=== PATIENT | female | born 1975 | race Caucasian/White ===

== ENCOUNTER 2023-09-11 13:01 | Outpatient (RCR) | payer OTHER, SELFPAY ==
--- NOTE | 2023-10-09 17:22 | MHC.SP.ADU ---
Referring provider: Tressa Mccoy MD Reason for Referral: hoarseness Type of Treatment: 959[address] Behavioral and Qualitative Analysis of Voice and Resonance Date of Plan of Treatment: 09/11/23 Onset of Symptoms/Illness: 08/22/22 Date Treatment Started: 09/11/23 Medical Diagnosis: hoarseness, GERD Primary Speech Language Diagnosis: R49.0 Dysphonia History Eileen is a 47 year old female referred for speech therapy by Tressa Mccoy MD, with [facility] with diagnoses of hoarseness and GERD. Eileen was seen by the ENT in May 2023. The ENT referral notes a normal oropharynx, no neck adenopathy, no true cord lesions as well as ?some cobblestoning and some squeeze with phonation and some mild erythema.? Per ENT report, the ENT suspects the presence of muscle tension dysphonia throat clearing heavier as contributing to soreness and hoarseness. Eileen?s ENT visit in May prompted a referral to [facility] for voice therapy for hoarseness. Eileen provided additional background information at this Speech-Language Pathologist evaluation at [facility]. 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 Eileen reports that in August 2022 she was admitted to the hospital for severe abdominal pain where she was put on ?acid meds to control stomach.? In September 2022, she was experiencing a loss of voice and throat pain that felt like strep that worsened with exercise. In December 2022, she began seeing a GI doctor, where she was diagnosed with reflex. She reports that she was initially put on Pantoprazole which ?didn?t seem to help.? She reports that she feels that her GI appointments have been helpful in evaluation and monitoring of symptoms and believes that this is the appropriate path for her treatment. In addition to voice concerns, Eileen reports difficulty with swallowing; reporting that when her throat hurts, it hurts to swallow in general. Medical History: Acid Reflux Chronic Laryngitis Medication List: Mounjaro Recent Hospitalizations: No Respiratory Needs: Room Air Patient Orientation: Alert & Oriented x 4 Social History: Employment Status: Apartment Community Manager Employed Highest level of education obtained: Completed Master's Current Living Situation: Lives w/ others in private residence Assistive Devices in use: Glasses/Contacts Past Speech Language Therapy: None reported Other Therapies Seen in Current Calendar Year: Other (See Comment) Other: None reported Swallowing History: Dysphagia Specific: Other Comments: Eileen reports that swallowing generally hurts when her throat hurts. Recommend further discussion regarding swallowing to explore any further s/s of dysphagia. Pre-eval Risk for Aspiration: None Pre-evaluation Dietary Consistencies: Regular Pre-eval Liquid Intake: Thin Reported Speech, Language, Cognition difficulties: Voice Swallowing Assessment Informal Voice Assessment: Voice Loudness: Normal Voice Phonatory-based Quality: Normal, Hoarse Voice Pitch: Normal Voice Other Observations: Clinical Impression: Clinicial Observations: RESULTS: Eileen?s vocal quality as well as her perception of her voice was analyzed during today?s evaluation through measures including patient interview, questionnaires, conversation samples, and vocal exercises. Eileen reports that on the day of this visit that her voice feels minimally quiet and weak with a moderately sore throat. She self-reports a vocal rating of 85% out of 100. She reports that she worked out the past 3 days which has negatively impacted her voice. She presents with a mildly hoarse to normal voice throughout the evaluation. Eileen did not present with any throat clearing behavior during today?s visit. Patient History & Vocal Hygiene Interview In an interview largely regarding vocal hygiene, Eileen reported the following: -At least 8 glasses of water per day -No caffeine or chocolate -Minimal alcohol use -No smoking -6 hours of sleep per night -Frequent loud talking, talking in noisy environments, and talking for long periods of time; largely due to her profession as a teacher -Occasional throat clearing -Rare episodes of yelling and coughing -Vocal quality worse in the morning and after exercise -Vocal rest improves vocal quality -Has reflux symptoms, but not currently taking heartburn/reflux medication Voice Handicap Index (VHI) The VHI is a questionnaire in which an individual answers questions regarding functional, emotional, and physical components of their voice to provide insight into their perception of their own voice. Functional questions provide insight into the impact of their voice on daily activities; i.e. ?I speak with friends, neighbors, or relatives less often because of my voice.? Emotional questions provide insight into the individual?s feelings regarding their voice; i.e. ?My voice problem upsets me.? Physical questions provide insight into the individual?s physical discomfort and characteristics of voice; i.e. ?I use a great deal of effort to speak.? Responses to questions include never, almost never, sometimes, almost always, and always. Eileen?s score was computed to be 25 out of a total possible score of 120. A score of 0-30 is interpreted as a ?minimal amount of handicap? meaning that her perception of her voice has minimal impact on aspects of daily life. Her physical symptoms score was the highest at 14 out of a possible 40, followed by functional followed by emotional; suggesting that her voice has the greatest physical impact in Eileen?s daily life.? Voice-Related Quality of Life (V-RQOL) Measure The V-RQOL is a questionnaire completed by an individual to analyze their outlook on their voice problem as it relates to their daily activities and overall quality of life. There are ten statements to which an individual subscribes a score to each from 1 to 5 (1=not a problem, 5=?as bad as it can be?) to describe how much of a problem that particular statement has been within the past two weeks. Eileen assigned ratings 1, 2, and 3 to each statement. She responded 3 (moderate) to ?I am sometimes anxious or frustrated because of my voice? and ?I have trouble doing my job or practicing my profession because of my voice.? Eileen scored 19 on the questionnaire, which is considered ?excellent? and indicates minimal negative effect on one?s quality of life. It is worth noting that a score of 20-29 would indicate ?fair to good? in regards to the effect on one?s quality of life. S:Z Ratio The S:Z Ratio is not diagnostic of laryngeal pathology: it is merely a measurement of one?s ability to sustain the voiceless sound [S] in comparison to sustaining the voiced sound [Z] cognate. For the majority of people with no difficulties affecting their vocal folds are typically able to sustain both the voiceless [S] and voiced [Z] sounds for approximately the same length of time during the S:Z task, thus producing a 1:1 ratio. 95% of people who have some difficulty affecting the movement or vibration of their vocal folds have an S:Z ratio of greater than 1.40. Conversely, a S:Z ratio of less than 1.0 suggests functional dysphonia in the absence of laryngeal pathology ([place] & Howie, 1981).? Across three trials, Eileen produced the following on the S:Z prolongation averages: S = 13.5 seconds Z = 17.5 seconds Ratio: 0.77 Norms: Mean S= 17.7 seconds (Standard deviation = 7.6 seconds); Mean Z=18.6 seconds (Standard deviation = 7.0 seconds) ([place] & Howie 1981 in John et. al. 1987) Eileen?s S:Z ratio of less than 1.0 would indicate functional dysphonia in the absence of laryngeal pathology. The length of her [S] and [Z] sound prolongations are deemed to be within 1 standard deviation based on the normative data provided above. Maximum Phonation Time (MPT) [a] prolongation: range: 12.96-16.66 seconds, mean = 14.42 seconds When prompted to produce a prolonged ?AHH? ([a] prolongation), Eileen presented inconsistency in volume but overall good respiratory support and good vocal quality. Compared to normative data of adult females, Eileen?s maximum phonation time of [a] (?AHH?) is less. Eileen produced a mean maximum phonation time of 14.42 seconds as compared to the average time of 25.7 seconds (John et. al., 1987). Pitch Glides Eileen?s pitch range was evaluated through pitch glides with vowels ?AHH? and ?EEE.? Eileen was asked to glide up in pitch from low to high on these two vowels. She presented with strained vocal quality when producing high pitch, particularly when over 300Hz. She presented and reported difficulty producing a lower pitch. Across three trials of each vowel, Eileen?s lowest pitch produced was 116Hz with ?EEE? and 146Hz with ?AHH.? Eileen?s highest pitch produced was 311Hz with ?EEE? and 261Hz with ?AHH.? ? Impressions and Recommendations Summary: Eileen presents with a minimally hoarse voice during today?s evaluation with some tasks demonstrating difficulty with respiratory efficiency and pitch range. Eileen demonstrates good indication of what is considered good vocal quality and based on self-report; she practices good vocal hygiene on her own. It is recommended that Eileen attend 1:1 voice therapy with a Speech-Language Pathologist for 3-6 sessions to provide education and practice on behavioral strategies for respiration and muscle relation as well as to improve respiratory efficiency. Impact on Daily Function/Activity Limitations: Daily Activities: Moderate Employment: Moderate Community: Moderate Recommendation for Speech Therapy: It is recommended that Eileen attend weekly 1:1 voice therapy for 3-6 weeks to provide education and practice on behavioral strategies for respiration and muscle relation as well as to improve respiratory efficiency. The following goals are recommended: Goals: -Eileen will sustain vowel prolongation for 20 seconds in 80% of opportunities -Eileen will accurately demonstrate diaphragmatic breathing in 100% of trials with minimal cueing. -Eileen will accurately demonstrate progressive muscle relaxation technique in 100% of trials with minimal cueing. Patient Education: Completed: Yes Patient/Caregiver Education: Described Results of Evaluation Patient expressed understanding of evaluation [employer] Clinican/Clinical Fellow: No Supervisory Statement: N/A Speech Language Pathologist: Dorothy Aldridge M.A., CCC-VALVER
== END 2023-10-16 15:03 | disposition home or self-care (01) ==
LOC: HO.SH 13:01
PROVIDERS: PCP Student in an Organized Health Care Education/Training Program; Visit Provider Otolaryngology
DX: R49.0 Dysphonia (principal)
CPT/HCPCS: 92524